=== PATIENT | female | born 1970 ===

== ENCOUNTER 2017-08-16 08:27 | Emergency (ER) | payer SELFPAY ==
--- NOTE | ~2017-08-16 | ER ---
ADMIT: 08/16/2017 RM/LOC: ER [facility] MR#: [id number] [id number] [address]AY RENDON [address] [place] [address] Emergency Room Report SEX: F AGE: 46 : 1970 DATE: 08/16/2017 ADDENDUM: This patient comes into the ER because she woke up this morning, and her thought she was confused. She has pain on the left side of her whole body, and they felt that she just did not answer questions like she normally does. According to her , she has had something like this several years ago, but they called it a panic attack. He is mostly concerned about the confusion. On physical exam, she is tearful and very anxious. She had a normal exam. She did answer questions slowly, but she was alert and oriented. Her vital signs were normal. CT of her head was normal. Cardiac enzymes were normal. CBC and BMP were also normal. She was given Ativan when I went to re-evaluate her, all her symptoms had subsided. I wrote a prescription for Valium, and she is to follow up with her primary. Please see my T-sheet. JOI Godwin / Hal Javier MD / hildal JOB #: [id number] CC: Hal Javier MD, Attending Physician Harmony Davis MD, Family Physician
== END 2017-08-16 12:00 | disposition home or self-care (01) ==
LOC: ER 08:27
DX: F41.9 Anxiety disorder, unspecified (principal); R07.9 Chest pain, unspecified; I10 Essential (primary) hypertension